=== PATIENT | male | born 1990 | race Caucasian/White ===

== ENCOUNTER 2022-03-04 10:28 | Day surgery (SDC) | payer OTHER ==
[~2022-03-04] VITALS: Ht 180.3 cm; Wt 65.8 kg
[2022-03-04] MEDS ORDERED: MIDAZOLAM 2 MG/2 ML VIAL ONE (13:13)
[2022-03-04] MEDS ORDERED: fentaNYL citrate 0.05 MG/ML VIAL ONE (13:13)
[2022-03-04] MEDS ORDERED: LIDOCAINE 2% 100 MG/5 ML UJET TP ONE (13:13)
[2022-03-04] MEDS ORDERED: fentaNYL citrate 0.05 MG/ML VIAL IVP ONE (14:05)
[2022-03-04] MEDS ORDERED: MIDAZOLAM 2 MG/2 ML VIAL IVP ONE (14:05)
== END 2022-03-04 14:25 | disposition home or self-care (01) ==
LOC: MDS 10:28 → MMU 10:31 → MDS 14:23
PROVIDERS: ATTEND Internal Medicine Gastroenterology
DX: K51.011 Ulcerative (chronic) pancolitis with rectal bleeding (principal); G43.909 Migraine, unspecified, not intractable, without status migrainosus; F41.9 Anxiety disorder, unspecified; F32.A Depression, unspecified; M41.9 Scoliosis, unspecified; Z79.899 Other long term (current) drug therapy; Z88.8 Allergy status to other drugs, medicaments and biological substances
CPT/HCPCS: 45378; J2250; J3010